=== PATIENT | female | born 1990 | race Caucasian/White ===

== ENCOUNTER 2023-04-27 07:01 | Outpatient (OUT) | payer OTHER, SELFPAY ==
--- NOTE | 2023-04-27 09:21 | US_ITS ---
[address] [address] Patient Name: DIMITRIS MARKS MRN: [id number] date: 1990 Sex: F Assigned Patient Location: Current Patient Location: [facility] Accession/Order Number: [id number] Exam Date: 04/27/2023 09:25 Report Date: 04/28/2023 21:50 At the request of: IDA BRIGHT Procedure: US OB >= 14 weeks Fetus EXAM: US OB cervical length, US OB >= 14 weeks Fetus HISTORY: 32 year old 19 weeks female leaking fluid scanned yesterday. Estimated date of delivery is 09/20/2023 TECHNIQUE: Ultrasound performed of the pelvis using colon scale, cine, M-mode and color doppler. COMPARISON: None. FINDINGS: Summary: Number of Fetuses: Singlefetus in breech position. Placenta: Complete previa. The placenta is completely covering the os heart: 144 beats per minute. SILVER: Q1: 1.5 cm Q2: 0.5 cm Q3: 0.56 cm Q4: 2.0 cm Total SILVER: 4.6 cm. Oligohydramnios (Normal 8-18 cm)* Largest pocket: 2.0 cm (less than 8 cm) Cervical length: 3.7 cm. Cervix Closed. Anatomy: Not assessed in this exam which was ordered to evaluate amniotic fluid index and cervical length. Maternal Anatomy: Uterus: Gravid. Uterine dimensions are incalculable at this stage. Ovaries: Not visualized due to the large, gravid uterus. Adnexa: No overt adnexal abnormalities. IMPRESSION: 1. Viable Villegas fetus IUP in breech presentation. 2. Complete placenta previa 3. Total amniotic fluid index equals 4.6 cm = oligohydramnios. 4. Cervix measures 3.7 cm. Closed Critical results re low SILVER and placenta Previa with Breech were NOTIFIED by TELEPHONE BY Dr. Parul Avilez MD to Jorden Franklin At 04/28/2023 9:23 PM EDT. Electronically authenticated by: PARUL AVILEZ Date: 04/28/2023 21:50
== END 2023-04-27 07:02 ==
LOC: US 06-12 07:02
PROVIDERS: PCP Nurse Practitioner Family; Visit Provider Obstetrics & Gynecology
DX: N92.6 Irregular menstruation, unspecified (principal); O32.1XX0 Maternal care for breech presentation, not applicable or unspecified
CPT/HCPCS: 76815

== ENCOUNTER 2023-04-28 18:50 | Observation (INO) | payer OTHER, SELFPAY ==
[2023-04-28 19:07] VITALS: BP 137/87; PULSE 103; RESP 18; TEMP 37.5
--- NOTE | 2023-04-28 19:10 | US_ITS ---
[address] [address] Patient Name: DIMITRIS MARKS MRN: [id number] date: 1990 Sex: F Assigned Patient Location: [facility] Current Patient Location: [place] Accession/Order Number: [id number] Exam Date: 04/28/2023 19:45 Report Date: 04/28/2023 21:29 At the request of: [place] Procedure: US OB amniotic fluid vol EXAM: US OB amniotic fluid vol HISTORY: leaking fluid. COMPARISON: 04/27/2023 TECHNIQUE: Multiple real-time transabdominal images were obtained of the uterus. PRESENTATION: Breech presentation with longitudinal lie PLACENTA LOCATION: Complete previa is noted. CERVICAL LENGTH: 3.7 cm. SILVER: 4.6 cm. Largest fluid pocket measures 1.5 cm. IMPRESSION: Oligohydramnios with the largest fluid pocket measuring 1.5 cm and SILVER 4.6. The placenta appears to completely cover the internal cervical os on today's images. Electronically authenticated by: ANETA LAMANZAR Date: 04/28/2023 21:29
--- NOTE | 2023-04-28 19:31 | US_ITS ---
[address] [address] Patient Name: DIMITRIS MARKS MRN: [id number] date: 1990 Sex: F Assigned Patient Location: [facility] Current Patient Location: [facility] Accession/Order Number: [id number] Exam Date: 04/28/2023 20:00 Report Date: 04/28/2023 21:50 At the request of: JORDEN FRANKLIN Procedure: US OB cervical length EXAM: US OB cervical length, US OB >= 14 weeks Fetus HISTORY: 32 year old 19 weeks female leaking fluid scanned yesterday. Estimated date of delivery is 09/20/2023 TECHNIQUE: Ultrasound performed of the pelvis using colon scale, cine, M-mode and color doppler. COMPARISON: None. FINDINGS: Summary: Number of Fetuses: Singlefetus in breech position. Placenta: Complete previa. The placenta is completely covering the os heart: 144 beats per minute. SILVER: Q1: 1.5 cm Q2: 0.5 cm Q3: 0.56 cm Q4: 2.0 cm Total SILVER: 4.6 cm. Oligohydramnios (Normal 8-18 cm)* Largest pocket: 2.0 cm (less than 8 cm) Cervical length: 3.7 cm. Cervix Closed. Anatomy: Not assessed in this exam which was ordered to evaluate amniotic fluid index and cervical length. Maternal Anatomy: Uterus: Gravid. Uterine dimensions are incalculable at this stage. Ovaries: Not visualized due to the large, gravid uterus. Adnexa: No overt adnexal abnormalities. IMPRESSION: 1. Viable Villegas fetus IUP in breech presentation. 2. Complete placenta previa 3. Total amniotic fluid index equals 4.6 cm = oligohydramnios. 4. Cervix measures 3.7 cm. Closed Critical results re low SILVER and placenta Previa with Breech were NOTIFIED by TELEPHONE BY Dr. Parul Avilez MD to Jorden Franklin At 04/28/2023 9:23 PM EDT. Electronically authenticated by: PARUL AVILEZ Date: 04/28/2023 21:50
[2023-04-28 20:53] VITALS: TEMP 37.1
== END 2023-04-28 22:25 | disposition home or self-care (01) ==
PROVIDERS: Admitting Provider Obstetrics & Gynecology; PCP Nurse Practitioner Family; Visit Provider Obstetrics & Gynecology
DX: O44.02 Complete placenta previa NOS or without hemorrhage, second trimester (principal); O32.1XX0 Maternal care for breech presentation, not applicable or unspecified; Z3A.19 19 weeks gestation of pregnancy
CPT/HCPCS: 76815; 76817; G0378; G0379

== ENCOUNTER 2023-05-01 11:36 | Outpatient (OUT) | payer OTHER, SELFPAY | END 2023-05-01 11:37 | LOC: LAB 11:36 | PROVIDERS: PCP Nurse Practitioner Family; Visit Provider Physician Assistant | DX: Z34.92 Encounter for supervision of normal pregnancy, unspecified, second trimester (principal) | CPT/HCPCS: 36415; 82105 ==

== ENCOUNTER 2023-05-01 13:52 | Outpatient (OUT) | payer OTHER, SELFPAY ==
--- NOTE | 2023-05-01 14:00 | US_ITS ---
The [address] [address] Patient Name: DIMITRIS MARKS MRN: [id number] date: 1990 Sex: F Assigned Patient Location: US Current Patient Location: [place] Accession/Order Number: [id number] Exam Date: 05/01/2023 14:10 Report Date: 05/01/2023 15:56 At the request of: IDA BRIGHT Procedure: US OB amniotic fluid vol EXAMINATION: US OB cervical length, US OB amniotic fluid vol HISTORY: Placenta Previa , low fluid COMPARISON: Ultrasound OB amniotic fluid volume and cervical length 04/28/2023 TECHNIQUE: Transabdominal and transvaginal sonographic examination for cervical length. FINDINGS: CERVIX LENGTH: 5.6 cm POSITION: Breech HEART RATE: 152 bpm AMNIOTIC FLUID: 4.7 cm (deepest pocket is 2.0 cm) PLACENTA: Complete previa. OTHER: Questionable fluid collection within posterior neck, but difficult to determine due to lack of fluid within gestational sac. Age by EDC: 19 weeks 5 days CARMELA by EDC: 09/20/2023 IMPRESSION: 1. Single live intrauterine . 2. Marked oligohydramnios; unchanged. 3. Questionable fluid within posterior neck soft tissues (cystic hygroma). Evaluation is very limited due to lack of surrounding fluid within the gestational sac. No appreciable improvement in patient status. Findings were being called by the retail security professional to the physician's office at 3:33 PM Electronically authenticated by: LILY HERNANDEZ Date: 05/01/2023 15:56
--- NOTE | 2023-05-01 14:00 | US_ITS ---
The [address] [address] Patient Name: DIMITRIS MARKS MRN: [id number] date: 1990 Sex: F Assigned Patient Location: US Current Patient Location: US Accession/Order Number: [id number] Exam Date: 05/01/2023 14:10 Report Date: 05/01/2023 15:56 At the request of: IDA BRIGHT Procedure: US OB cervical length EXAMINATION: US OB cervical length, US OB amniotic fluid vol HISTORY: Placenta Previa , low fluid COMPARISON: Ultrasound OB amniotic fluid volume and cervical length 04/28/2023 TECHNIQUE: Transabdominal and transvaginal sonographic examination for cervical length. FINDINGS: CERVIX LENGTH: 5.6 cm POSITION: Breech HEART RATE: 152 bpm AMNIOTIC FLUID: 4.7 cm (deepest pocket is 2.0 cm) PLACENTA: Complete previa. OTHER: Questionable fluid collection within posterior neck, but difficult to determine due to lack of fluid within gestational sac. Age by EDC: 19 weeks 5 days CARMELA by EDC: 09/20/2023 IMPRESSION: 1. Single live intrauterine . 2. Marked oligohydramnios; unchanged. 3. Questionable fluid within posterior neck soft tissues (cystic hygroma). Evaluation is very limited due to lack of surrounding fluid within the gestational sac. No appreciable improvement in patient status. Findings were being called by the sports equipment supervisor to the physician's office at 3:33 PM Electronically authenticated by: LILY HERNANDEZ Date: 05/01/2023 15:56
== END 2023-05-01 13:53 ==
LOC: US 13:52
PROVIDERS: PCP Nurse Practitioner Family; Visit Provider Obstetrics & Gynecology
DX: O41.02X0 Oligohydramnios, second trimester, not applicable or unspecified (principal); Z3A.00 Weeks of gestation of pregnancy not specified
CPT/HCPCS: 36415; 76815; 76817; 82105

== ENCOUNTER 2023-05-03 07:28 | Observation (INO) | payer OTHER, SELFPAY ==
[2023-05-03 08:08] VITALS: BP 131/74; PULSE 86
[2023-05-03 09:21] LABS: Bilirubin Urine NEGATIVE (NEGATIVE); Blood Urine SMALL (NEGATIVE); Clarity Urine CLEAR (CLEAR); Color Urine LT. YELLOW (YELLOW); Glucose Urine UA NEGATIVE (NEGATIVE); Ketones Urine NEGATIVE (NEGATIVE); Leukocyte Esterase Urine NEGATIVE (NEGATIVE); Nitrite Urine NEGATIVE (NEGATIVE); Protein Urine NEGATIVE (NEG/TRACE); Specific Gravity Urine <=1.005 (1.005-1.025); Urine Microscopic Indicated YES; Urobilinogen Urine 0.2 EU/dL (0.2-1.0)
[2023-05-03 09:28] LABS: Bacteria Urine NONE SEEN #/HPF (NONE SEEN); Cast Seen? NONE SEEN #/LPF (NONE SEEN); Crystals Seen? None Seen #/HPF (None Seen); Mucus Urine TRACE (NONE SEEN); Squamous Epithelial Cell Urine MANY #/LPF (NONE/RARE); Urine Culture Indicated NO; WBC Urine NONE SEEN #/HPF (NONE SEEN)
== END 2023-05-03 09:40 | disposition home or self-care (01) ==
PROVIDERS: Admitting Provider Obstetrics & Gynecology; PCP Nurse Practitioner Family; Visit Provider Obstetrics & Gynecology
DX: O46.92 Antepartum hemorrhage, unspecified, second trimester (principal); Z3A.20 20 weeks gestation of pregnancy
CPT/HCPCS: 81003; 81015; G0378; G0379